=== PATIENT | male | born 1945 | race African-American/Black ===

== ENCOUNTER 2024-06-13 12:36 | Emergency (ER) | payer MEDICARE, OTHER ==
[~2024-06-13] VITALS: Ht 177.8 cm; Wt 104.5 kg
[~2024-06-13 12:36] MED LIST: ALTACE 10MG TAB10 MG PO; CELEBREX 200MG200 MG PO; ELIQUIS 5MG PO; GLUCOPHAGE1000 MG PO; HYDRODIURIL50 MG PO; K-DUR 2020 MEQ PO; K-TAB20 PO; LIPITOR 40MG TA40 MG PO; LOPRESSOR 225 MG/TAB PO; TYLENOL 500MG500 MG PO; VALTREX1 GM PO
[2024-06-13 12:42] VITALS: TEMP 97.9
[2024-06-13 13:35] VITALS: BP 129/78; PULSE 62
== END 2024-06-13 14:20 | disposition home or self-care (01) ==
LOC: COL.ER 12:36
DX: M79.642 Pain in left hand (principal); Z87.891 Personal history of nicotine dependence